=== PATIENT | male | born 1990 | race African-American/Black ===

== ENCOUNTER 2024-04-18 14:31 | Emergency (ER) | payer OTHER, SELFPAY ==
[2024-04-18 14:49] VITALS: BP 136/78; PULSE 74; RESP 18; TEMP 37.1; O2SAT 100; BMI 28.0
--- NOTE | 2024-04-18 15:29 | ED.EYEPROB ---
HPI - Eye Problem <Rafael Colmenares PA-C - Last Filed: 04/18/24 16:17> General Chief complaint: Eye Problems Stated complaint: L Eye Problem Time Seen by Provider: 04/18/24 15:01 Source: patient Mode of arrival: Ambulatory History of Present Illness HPI Narrative: This is a 33-year-old male presents to the emergency department due to left eye irritation. Patient states that he was leaf blowing yesterday with the eye protection and this morning woke up with some eye pain and irritation and redness of the left eye as well as swelling of his eyelids as well as purulent discharge and drainage this morning. Denies any fevers, nausea, vomiting, or any other concerning signs or symptoms. States some mild blurred vision due to the amount of watering. Related Data Previous Rx's Medication Instructions Recorded amoxicillin 875 mg-potassium 1 tab PO BID 7 days #14 tabs 04/18/24 clavulanate 125 mg tablet polymyxin B sulfate 10,000 2 drp EYE-LEFT QID 7 days #10 mL 04/18/24 unit-trimethoprim 1 mg/mL eye drops Allergies Allergy/AdvReac Type Severity Reaction Status Date / Time No Known Drug Allergies Allergy Verified 04/18/24 14:57 Review of Systems <KEITH Simth Last Filed: 04/18/24 16:17> Review of Systems Narrative: GENERAL: Denies chills, fatigue, malaise, fever, sweats. HEENT: Reports left eye irritation eyelid swelling Denies sinus pain, ear pain, sore throat, difficulty swallowing, dizziness. RESPIRATORY: Denies dyspnea, cough, wheezing, hemoptysis, sputum. CARDIOVASCULAR: Denies chest pain, palpitations, orthopnea, edema, GASTROINTESTINAL: Denies nausea, vomiting, abdominal pain, diarrhea, constipation, melena. : Denies dysuria, frequency, incontinence, hematuria, urinary retention. MUSCULOSKELETAL: denies weakness, joint pain, or bony pain SKIN: Denies rash, skin lesions, or other NEUROLOGIC: Denies weakness, headache, numbness, change in speech, confusion, seizures, incoordination. PSYCHIATRIC: No concerning psychosocial issues. 12 point review of systems is negative except for those stated above Patient History <Rafael Colmenares PA-C - Last Filed: 04/18/24 16:17> Social History Smoking Status: Never smoker Smoking Status: Never smoker alcohol intake frequency: a few times a week Alcohol type: hard liquor Substance Use Type: does not use Exam <Rafael Colmenares PA-C - Last Filed: 04/18/24 16:17> Narrative Exam Narrative: GENERAL: Well-developed patient, in mild distress. HEAD: Atraumatic. Normocephalic. EYES: Significant erythema to the conjunctiva of the left eye, no evidence of hyphema. There was also mild edema to upper and lower eyelids of the left eye as well. No pain with extraocular movements. ENT: Nose without bleeding, purulent drainage. Throat without erythema, tonsillar hypertrophy or exudate. Airway patent. NECK: Trachea midline. Non tender EXTREMITIES: No edema or joint tenderness. NEURO: AOx3. SKIN: No rash or erythema of visible areas Initial Vital Signs Initial Vital Signs: Vital Signs Temperature 98.8 F 04/18/24 14:49 Pulse Rate 74 04/18/24 14:49 Respiratory Rate 18 04/18/24 14:49 Blood Pressure 136/78 04/18/24 14:49 Pulse Oximetry 100 04/18/24 14:49 Oxygen Delivery Method Room Air 04/18/24 14:49 <Moisés Garcia DO - Last Filed: 04/18/24 17:02> Initial Vital Signs Initial Vital Signs: Vital Signs Temperature 98.8 F 04/18/24 14:49 Pulse Rate 74 04/18/24 14:49 Respiratory Rate 18 04/18/24 14:49 Blood Pressure 136/78 04/18/24 14:49 Pulse Oximetry 100 04/18/24 14:49 Oxygen Delivery Method Room Air 04/18/24 14:49 Course <Rafael Colmenares PA-C - Last Filed: 04/18/24 16:17> Orders Ordered: Discontinued Medications Fluorescein Sodium (Fluorescein 1 Mg Strip) 1 mg EYE-RIGHT NOW ONE Stop: 04/18/24 15:39 Last Admin: 04/18/24 15:41 Dose: 1 mg Documented By: SRAVANI Proparacaine HCl (Proparacaine 0.5% Ophth Kate) 1 drops EYE-RIGHT NOW ONE Stop: 04/18/24 15:39 Last Admin: 04/18/24 15:41 Dose: 1 drop Documented By: SB Vital Signs Vital signs: Vital Signs - 8 hr 04/18/24 14:49 04/18/24 16:55 Temperature 98.8 F Pulse Rate 74 65 Respiratory Rate 18 18 Blood Pressure 136/78 112/71 Pulse Oximetry 100 98 Oxygen Delivery Method Room Air Room Air <Moisés Garcia DO - Last Filed: 04/18/24 17:02> Orders Ordered: Discontinued Medications Fluorescein Sodium (Fluorescein 1 Mg Strip) 1 mg EYE-RIGHT NOW ONE Stop: 04/18/24 15:39 Last Admin: 04/18/24 15:41 Dose: 1 mg Documented By: SRAVANI Proparacaine HCl (Proparacaine 0.5% Ophth Kate) 1 drops EYE-RIGHT NOW ONE Stop: 04/18/24 15:39 Last Admin: 04/18/24 15:41 Dose: 1 drop Documented By: SRAVANI Vital Signs Vital signs: Vital Signs - 8 hr 04/18/24 14:49 04/18/24 16:55 Temperature 98.8 F Pulse Rate 74 65 Respiratory Rate 18 18 Blood Pressure 136/78 112/71 Pulse Oximetry 100 98 Oxygen Delivery Method Room Air Room Air MDM - Eye Problem <Rafael Colmenares PA-C - Last Filed: 04/18/24 16:17> MDM Narrative Medical decision making narrative: ED course: This is a 33-year-old male presents to the emergency department due to left eye irritation after falling yesterday. There was significant erythema to the conjunctiva as well as purulent drainage this morning and will treat for possible bacterial conjunctivitis. Patient was describing a pressure to his left eye in intra-ocular pressures were taken which were 19 and reassuring. Patient was also having some mild edema to his upper and lower eyelid in the left side we will treat for possible preseptal cellulitis as well. No evidence of abrasion with fluorescein staining. No pain with extraocular movement and low concern for oral cellulitis. CC: Left eye irritation Complicating co-morbidities: None Data collected from: Previous notes Medical records reviewed: Patient was not been to this emergency department the past Differential considered, but not limited to: Orbital cellulitis, preseptal cellulitis, viral conjunctivitis, bacterial conjunctivitis Exam documented above, pertinent findings include: As above Lab Test results independently reviewed as above. Pertinent findings: None obtained Imaging studies independently reviewed: None obtained Scores Used: None MIPS Elements: None Consultations: None Treatments: None Re-evaluations: None Discussion: Discussed plan with the patient was comfortable with the plan Diagnosis: Bacterial conjunctivitis, preseptal cellulitis Disposition: see below, along with detailed discharge instructions that have been reviewed with patient as well as indications for ED re-evaluation and additional outpatient follow up Discharge Plan Departure Patient Disposition: Home Clinical Impression: Bacterial conjunctivitis, Preseptal cellulitis Activity Restrictions/Additional Instructions: Thank you for coming to the [facility] Emergency Department today. We will treat for possible bacterial ?pinkeye? as well as a possible skin infection affecting her eyelids. Please use both antibiotics as prescribed. Please return to the emergency department if you develop any significant pain with eye movement, fevers, or any other concerning signs or symptoms. I sent the medications to [facility] in [place]. I hope you feel better soon. Please follow up with your primary care provider within a week if your symptoms continue. If you do not have a primary care provider please contact the [facility] Resource line at [phone]. They will ask some questions about your medical history and help you get set up with a provider in the community.. Prescriptions: New polymyxin B sulf-trimethoprim 10,000 unit- 1 mg/mL drops 2 drp EYE-LEFT QID 7 Days Qty: 10 0RF amoxicillin-pot clavulanate 875-125 mg tablet 1 tab PO BID 7 Days Qty: 14 0RF Stand Alone Forms: Patient Portal/API ED Sign-out <Moisés Garcia, DO - Last Filed: 04/18/24 17:02> Cosign ED Attending Cosignature Attestation: Dr Garcia Co-Sign Statement: I was available for consultation during this patient's emergency department visit. This chart is signed by myself for administrative purposes only. I did not have direct contact with this patient during this visit. They were seen independently by the APC.
[2024-04-18] MEDS: FLUORESCEIN 1 MG STRIP EYE-RIGHT (15:41)
[2024-04-18] MEDS: PROPARACAINE 0.5% OPHTH SOL 1 DROPS EYE-RIGHT (15:41)
[2024-04-18 16:55] VITALS: BP 112/71; PULSE 65; RESP 18; O2SAT 98
== END 2024-04-18 16:33 | disposition home or self-care (01) ==
PROVIDERS: Emergency Provider Physician Assistant Medical
DX: H10.89 Other conjunctivitis (principal); L03.213 Periorbital cellulitis
CPT/HCPCS: 99282; 99283